=== PATIENT | female | born 1955 | race Caucasian/White ===

== ENCOUNTER 2017-10-20 02:38 | Emergency (ER) | payer MEDICARE, MEDICAID ==
[~2017-10-20] VITALS: Ht 149.9 cm; Wt 55.4 kg
[~2017-10-20 02:38] MED LIST: CYCL-1 PO; IBUP-1051 PO; MECL12.5 PO; ZOF4T PO
[2017-10-20 02:43] VITALS: BP 172/109
[2017-10-20] MEDS ORDERED: dexamethasone sod phosphate 10mg/ml inj IM STA (02:53)
== END 2017-10-20 03:31 | disposition home or self-care (01) ==
LOC: ER 02:39
DX: J02.9 Acute pharyngitis, unspecified (principal); F12.90 Cannabis use, unspecified, uncomplicated; I10 Essential (primary) hypertension; J44.9 Chronic obstructive pulmonary disease, unspecified; K21.9 Gastro-esophageal reflux disease without esophagitis; E03.9 Hypothyroidism, unspecified; Z90.49 Acquired absence of other specified parts of digestive tract; Z90.710 Acquired absence of both cervix and uterus; Z90.89 Acquired absence of other organs; Z98.890 Other specified postprocedural states; Z88.0 Allergy status to penicillin; Z88.8 Allergy status to other drugs, medicaments and biological substances; Z79.899 Other long term (current) drug therapy; Z56.0 Unemployment, unspecified
CPT/HCPCS: 96372; 99283; J1100